=== PATIENT | female | born 1995 | race Caucasian/White ===

== ENCOUNTER 2019-03-29 02:05 | Day surgery (SDC) | payer OTHER ==
[2019-03-29 02:43] VITALS: BMI 32.9
[2019-03-29] MEDS ORDERED: Acetaminophen 500 MG TAB PO PRN (03:08)
--- NOTE | 2019-03-29 03:14 | PDOC.LDHP ---
Labor and Delivery H&P Chief complaint: abdominal pain HPI: 23 y/o G1 at 26w1d, patient of Dr. Cobb, presents with constant abdominal pain since 11 this morning. Denies vB, LOF, ctx, or decreased FM. Denies UTI sx, N/V, diarrhea, URI symptoms. ROS neg for HEENT, cv, pulm, gi, gu, neuro, psych, skin, musculoskeletal or constitutional symptoms other than mentioned above. OB History Details: first Current complications: none Past Medical History: None Current medications: pre-dany vitamins Previous surgical history: none Allergies/Adverse Reactions: Allergies Allergy/AdvReac Type Severity Reaction Status Date / Time No Known Allergies Allergy Verified 03/29/19 02:44 Social history: none - Physical Exam Vital signs reviewed and normal: yes General: NAD, resting Lungs: nonlabored breathing Abdomen: gravid (tender to palpation) Extremeties: no edema FHT: category 1 (150s, mod variability) [place] contractions every: none - Assessment 23 y/o G1 at 26w1d with elevated WBC and significant abdominal tenderness. status reassuring. - Plan -: Continue to monitor with fluid hydration. Consider imaging if pain doesn't improve as there is concern for appendicitis vs chorio. Will discuss with Dr. eKssler and turn care over to him.
[2019-03-29] MEDS ORDERED: Lactated Ringer's 1,000 ML IV SCH (03:15)
--- NOTE | 2019-03-29 08:18 | ULT ---
COMPLETE ABDOMEN ULTRASOUND: INDICATION: Right-sided abdominal pain in a patient. Concern for possible appendicitis. FINDINGS: There is a single viable intrauterine gestation in breech presentation. The placenta is posterior in location without evidence of previa. Cervical length was 3.5 cm. Cardiac activity is noted at 157 b.p.m. ALEX was 20.4 cm. Visualized aspects of the spine, bladder, cord insertion, heart, and kidneys appear within norm al limits. The biparietal diameter was 6.39 cm giving an estimated gestational age of 25 weeks and 6 days (30th percentile). The head circumference measured 23.78 cm giving an estimated gestational age of 25 weeks and 6 days ( 17th percentile). The abdominal circumference measures 22.34 cm giving an estimated gestational age of 26 weeks and 5 d ays (64th percentile). The femoral length was 4.59 cm giving an estimated gestational age of 25 weeks and 2 days (13th perce ntile). The estimated weight is 889 gm (36th percentile). The estimated gestational age by ultrasound is 26 weeks and 0 days with n estimated due date of Dece2018. The clinical age is 26 weeks and 3 days with an estimated due date of 07/04/2019. Limited visualization of the right lower quadrant demonstrates shadowing bowel within the right lower quadrant. The appendix was not definitely seen. No free fluid was evident. IMPRESSION: 1. Single live intrauterine gestation with size and dates as above. 2. Nonvisualization of the appendix. If there remains further clinical concern, a noncontrast MRI o f the abdomen may be helpful. POS: YUN
--- NOTE | 2019-03-29 08:30 | PDOC.EVN ---
Event Note - Event Note Event Note: Received report from Dr. Wang. 26 week IUP with abdominal pain and +WBC at outside hospital. AF here, now given 2 bags IV fluid. FHTs stable, no regular UCs sen at present. On my exam she shows moderate fundal tenderness. Will obtain MRI of abdomen and pelvis.
--- NOTE | 2019-03-29 09:48 | MRI ---
EXAM: MRI of the pelvis without contrast HISTORY: female with abdominal pain COMPARISON: None TECHNIQUE: Multiplanar multisequence MR images were obtained of the pelvis without and with IV contra st. FINDINGS: A fetus is seen within the enlarged uterus. Placenta is posterior/fundal in location. No obvious feta l anomaly is seen. A small amount of free fluid is seen in the left lower quadrant and right lower quadrant of the abdom en. The appendix is visualized and is normal in caliber measuring 6 mm. Pelvic lymph nodes: No pelvic adenopathy Osseous structures: No marrow signal abnormality IMPRESSION: Nonspecific free fluid in the lower abdomen with normal caliber appendix.
--- NOTE | 2019-03-29 09:54 | MRI ---
EXAM: MRI of the abdomen without contrast COMPARISON: None HISTORY: female with abdominal pain and elevated white blood cell count TECHNIQUE: Multiplanar multi sequence MR images were taken of the abdomen without IV contrast. FINDINGS: Liver: No focal liver lesions or intrahepatic ductal dilatation. Normal signal without dropout on out of phase images. Gallbladder: No filling defects or gallbladder wall thickening. Common bile duct: Normal caliber without filling defects Adrenal glands: Unremarkable. Kidneys: No hydronephrosis or focal renal lesions. Spleen: Unremarkable. There is a trace amount of fluid adjacent to the spleen. Pancreas: Unremarkable. Retroperitoneum: No enlarged lymph nodes Bones: No marrow signal abnormality. There is a trace right pleural effusion. A trace amount of fluid is seen in the right abdomen surrounding the right ovary. This is in the vici nity of the appendix. IMPRESSION: No significant intra-abdominal abnormality.
[2019-03-29 10:53] LABS: Hemoglobin 12.1 g/dL (12.0-16.0); Mean Corpuscular HGB CONC 34.5 g/dL (32.0-36.0); Mean Corpuscular Hemoglobin 31.8 pg (27.0-31.0); Mean Corpuscular Volume 92.3 fL (78.0-98.0); Platelet Count 274 thou/uL (130-400); RBC Distribution Width 12.2 % (11.5-14.5); Red Blood Cell (RBC) Count 3.79 mill/uL (4.20-5.40); White Blood Cell (WBC) Count 21.7 thou/uL (4.8-10.8)
[2019-03-29 11:03] LABS: Band 6 % (5-11); Lymphocytes 10 % (21-51); MDiff Complete? YES; Monocytes 3 % (0-10); Neutrophil 81 % (42-75); RBC Morphology Normal
--- NOTE | 2019-03-29 12:54 | PDOC.EVN ---
Event Note - Event Note Event Note: WBC repated- 21K with 80% neutrophils. MRI of abdomen and pelvis is nonfocal. FHTs 150's, no decels. No UCs seen. In view of fundal tenderness and elevated WBC, will transfer to [facility] for MFM evaluation. Spoke with Dr. Sita Starr there who has accepted transfer. Pt. is in agreement with this.
== END 2019-03-29 15:00 | disposition short-term general hospital (02) ==
LOC: L&D/OP 02:05
PROVIDERS: ATTEND Obstetrics & Gynecology
DX: O99.89 Other specified diseases and conditions complicating pregnancy, childbirth and the puerperium (principal); R10.819 Abdominal tenderness, unspecified site; O99.112 Other diseases of the blood and blood-forming organs and certain disorders involving the immune mechanism complicating pregnancy, second trimester; D72.829 Elevated white blood cell count, unspecified; Z3A.26 26 weeks gestation of pregnancy
CPT/HCPCS: 36415; 72195; 74181; 76805